=== PATIENT | female | born 1990 | race Caucasian/White ===

== ENCOUNTER → 2018-09-23 09:35 | Outpatient (CLI) | payer OTHER, MEDICAID, SELFPAY ==
[2018-09-23 11:35] LABS: Add Manual Diff / Slide Review NO; Basophils Absolute Auto 0 /uL (0-100); Basophils Percent Auto 0.5 % (0-2); Eosinophils Absolute Auto 300 /uL (0-450); Eosinophils Percent Auto 3.9 % (2-4); Hematocrit 25.8 % (36-46); Hemoglobin 8.3 g/dL (12.0-16.0); Lymphocytes Absolute Auto 2000 /uL (1100-4500); Lymphocytes Percent Auto 30.4 % (25-40); Mean Corpuscular HGB Conc 32.2 % (30-36); Mean Corpuscular Hemoglobin 25.3 PG (26-34); Mean Corpuscular Volume 78.5 fL (80-100); Monocytes Absolute Auto 400 /uL (0-900); Monocytes Percent Auto 6.6 % (3-14); Neutrophils Absolute Auto 3900 /uL (1500-7000); Neutrophils Percent Auto 58.6 % (50-75); Platelet Count 508 X10^3/uL (150-400); Red Blood Cell Count 3.28 X10^6/uL (4.0-5.2); Red Cell Distribution Width 14.9 % (11.6-14.8); White Blood Cell Count 6.6 X10^3/uL (4.5-11.0)
[2018-09-23 11:51] LABS: Alanine Aminotransferase 26 IU/L (9-52); Alkaline Phosphatase 111 U/L (38-126); Aspartate Aminotransferase 23 IU/L (14-36); BUN Creatinine Ratio 14.2 (6-22); Bilirubin Total 0.3 mg/dL (0.2-1.3); Blood Urea Nitrogen 51 mg/dL (7-17); Calcium 8.9 mg/dL (8.4-10.2); Carbon Dioxide 26 mmol/L (22-32); Chloride 102 mmol/L (98-107); Estimated Glomerular Filt Rate 15.1 mL/min (>60); Glucose 99 mg/dL (70-100); Potassium 4.9 mmol/L (3.4-5.1); Sodium 140 mmol/L (137-145)
[2018-09-23 11:52] LABS: Albumin 3.9 g/dL (3.5-5.0); HEMOLYSIS < 15 (0-50); Total Protein 7.9 g/dL (6.3-8.2)
[2018-09-23 13:07] LABS: Hep C Virus Ab w/Reflex Quant NEGATIVE s/c (NEGATIVE)
[2018-09-25 14:06] LABS: Hepatitis B Core IgM Nonreactive (Nonreactive)
[2018-09-25 14:07] LABS: Hepatitis A Antibody IgM Nonreactive (Nonreactive)
[2018-09-25 14:45] LABS: Hepatitis B Surf Ab Qualitativ Nonreactive (Nonreactive)
== END ==
PROVIDERS: Visit Provider Family Medicine
DX: M79.7 Fibromyalgia (principal); R53.83 Other fatigue; Z13.818 Encounter for screening for other digestive system disorders; Z11.59 Encounter for screening for other viral diseases; Z13.228 Encounter for screening for other metabolic disorders
CPT/HCPCS: 36415; 80053; 85025; 86705; 86706; 86709; 86803